=== PATIENT | female | born 1995 | race African-American/Black ===

== ENCOUNTER 2017-02-06 09:19 | Emergency (ER) | payer OTHER ==
[~2017-02-06] VITALS: Ht 160 cm; Wt 68.0 kg
[~2017-02-06 09:19] MED LIST: CITRATE OF MAG296 ML PO; COLACE100 MG PO; HUMALOG100 UNIT/1 SUBQ; LANTUS100 UNIT/M SUBQ; ZOFRAN ODT4 MG PO
[2017-02-06 10:23] VITALS: BP 128/74
== END 2017-02-06 10:25 | disposition home or self-care (01) ==
LOC: ER 09:19
DX: J02.0 Streptococcal pharyngitis (principal); E11.9 Type 2 diabetes mellitus without complications

== ENCOUNTER 2017-03-30 18:49 | Emergency (ER) | payer OTHER ==
[~2017-03-30] VITALS: Ht 160 cm; Wt 68.0 kg
== END 2017-03-30 20:37 | disposition home or self-care (01) ==
LOC: ER 18:49
DX: S61.011A Laceration without foreign body of right thumb without damage to nail, initial encounter (principal); M25.561 Pain in right knee; M25.571 Pain in right ankle and joints of right foot; E11.9 Type 2 diabetes mellitus without complications; Z79.4 Long term (current) use of insulin; W26.0XXA Contact with knife, initial encounter; Y93.89 Activity, other specified; Y92.89 Other specified places as the place of occurrence of the external cause; Y99.8 Other external cause status

== ENCOUNTER 2018-01-15 21:09 | Emergency (ER) | payer OTHER ==
[~2018-01-15] VITALS: Ht 157.5 cm; Wt 68.0 kg
[2018-01-15 22:02] LABS: URINE BILIRUBIN NEGATIVE (Negative); URINE BLOOD NEGATIVE (Negative); URINE CLARITY CLEAR; URINE COLOR YELLOW; URINE GLUCOSE-RANDOM* 3+ (Negative); URINE KETONES NEGATIVE (Negative); URINE LEUKOCYTES-REFLEX NEGATIVE (Negative); URINE NITRITE-REFLEX NEGATIVE (Negative); URINE PROTEIN (DIPSTICK) NEGATIVE (Negative); URINE SPECIFIC GRAVITY <= 1.005 (1.005-1.035); URINE UROBILINOGEN 0.2 E.U./dl (0.2-1.0)
[2018-01-15] MEDS ORDERED: MONISTAT 7 COM1 EAC1 VAG (23:08)
[2018-01-15] MEDS ORDERED: VAGISIL CREAM28 G1 VAG (23:08)
[2018-01-15 23:35] VITALS: BP 131/68
== END 2018-01-15 23:35 | disposition home or self-care (01) ==
LOC: ER 21:09
PROVIDERS: Emergency Medicine
DX: B37.3 Candidiasis of vulva and vagina (principal)